=== PATIENT | female | born 1975 | race American Indian/Alaskan Native ===

== ENCOUNTER 2019-11-08 22:23 | Emergency (ER) | payer SELFPAY ==
[2019-11-08 23:05] VITALS: BP 125/83
[2019-11-09 00:06] LABS: Basophils # (Auto) 0.1 K/mm3 (0.0-0.1); Basophils % (Auto) 0.8 % (0.0-1.8); Eosinophils # (Auto) 0.1 K/mm3 (0.0-0.4); Eosinophils % (Auto) 1.3 % (0.0-4.3); Hematocrit 34.1 % (30.3-42.9); Hemoglobin 11.2 gm/dl (10.1-14.3); Lymphocytes # (Auto) 2.7 K/mm3 (1.2-5.4); Lymphocytes % (Auto) 42.3 % (13.4-35.0); Mean Corpuscular HGB Conc 33 % (30-34); Mean Corpuscular Volume 80 fl (79-97); Monocytes # (Auto) 0.7 K/mm3 (0.0-0.8); Monocytes % (Auto) 10.8 % (0.0-7.3); Platelet Count 341 K/mm3 (140-440); Red Blood Count 4.26 M/mm3 (3.65-5.03); Red Cell Distribution Width 15.4 % (13.2-15.2)
[2019-11-09 02:35] LABS: Bilirubin,Urine NEG (Negative); Urobilinogen,Urine < 2.0 mg/dL (<2.0)
[2019-11-09 02:48] LABS: Blood,Urine LG (Negative); Color,Urine Yellow (Yellow)
[2019-11-09 02:52] LABS: Protein,Urine >500 mg/dL (Negative); RBC,Urine > 182.0 /HPF (0.0-6.0); WBC,Urine > 182.0 /HPF (0.0-6.0)
--- NOTE | 2019-11-09 03:44 | Ultrasound Report ---
EXAMINATION: Obstetrical Ultrasound INDICATION: Vaginal bleeding in . COMPARISON: None FINDINGS: The uterus is upper limits of normal in size measuring 10.4 x 6.1 x 7.6 cm. The endometrial complex m easures approximately 2 cm. No intrauterine is visualized. The right adnexal region appears within normal limits. The left adnexal region is not visualized. No free pelvic fluid is seen. IMPRESSION: 1. No sonographic evidence of intrauterine . Diagnostic considerations include failed or fa iling , too early to visualize or less likely ectopic . Please correlate with patient's clinical circumstances. Signer Name: Yany Escalona MD Signed: 11/09/2019 3:40 AM Workstation Name: [email or web address]
--- NOTE | 2019-11-09 05:26 | Emergency Department Report ---
ED Female HPI - General Chief complaint: Vaginal Bleeding Stated complaint: 5 WKS W/BLEEDING Source: patient Mode of arrival: Ambulatory Limitations: No Limitations - History of Present Illness Initial comments: Patient is a A1 44-year-old -[place] female with no past medical history was approximately 4 weeks gestation and presents to the ED with of acute onset persistent pelvic pain and vaginal bleeding for the last 10 hours. Patient states that the bleeding has been heavy on the pain crampy and persistent. Patient denies fever, chills, nausea, vomiting, diarrhea, dizziness, cough, shortness of breath, chest pain, syncope, lightheadedness, dysuria, urinary frequency and urgency or low back pain. MD Complaint: vaginal bleeding, pelvic pain -: Sudden, hour(s) (10) Location: suprapubic, other (vaginal) Radiation: non-radiating Severity: severe Severity scale (0 -10): 7 Quality: cramping, aching Consistency: constant Improves with: none Worsens with: none Are you Now?: Yes (4 weeks gestation) Associated Symptoms: denies other symptoms, vaginal bleeding, abdominal pain (suprapubic), hematuria. denies: vaginal discharge, nausea/vomiting, fever/chills, headaches, loss of appetite, dysuria, rash, seizure, shortness of breath - Related Data Sexually active: Yes : 6 Para: 4 A: 1 Previous Rx's Medication Instructions Recorded Last Taken Type cephALEXin [Keflex] 500 mg PO Q6HR #40 capsule 11/09/19 Unknown Rx Allergies Allergy/AdvReac Type Severity Reaction Status Date / Time No Known Allergies Allergy Unverified 11/08/19 22:59 ED Review of Systems ROS: Stated complaint: 5 WKS W/BLEEDING Other details as noted in HPI Constitutional: denies: chills, fever Eyes: denies: eye pain, eye discharge, vision change ENT: denies: ear pain, throat pain Respiratory: denies: cough, shortness of breath, wheezing Cardiovascular: denies: chest pain, palpitations Endocrine: no symptoms reported Gastrointestinal: abdominal pain (suprapubic). denies: nausea, vomiting, diarrhea, constipation, hematemesis, hematochezia Genitourinary: abnormal menses (vaginal bleeding). denies: urgency, dysuria, discharge Musculoskeletal: denies: back pain, joint swelling, arthralgia Skin: denies: rash, lesions Neurological: denies: headache, weakness, paresthesias Psychiatric: denies: anxiety, depression Hematological/Lymphatic: denies: easy bleeding, easy bruising ED Past Medical Hx - Past Medical History Previous Medical History?: No - Surgical History Past Surgical History?: Yes Additional Surgical History: - Social History Smoking Status: Never Smoker Substance Use Type: None - Medications Home Medications: Home Medications Medication Instructions Recorded Confirmed Last Taken Type cephALEXin [Keflex] 500 mg PO Q6HR #40 capsule 11/09/19 Unknown Rx ED Physical Exam - General Limitations: No Limitations General appearance: alert, in no apparent distress - Head Head exam: Present: atraumatic, normocephalic, normal inspection - Eye Eye exam: Present: normal appearance, PERRL, EOMI Pupils: Present: normal accommodation - ENT ENT exam: Present: normal exam, normal orophraynx, mucous membranes moist, TM's normal bilaterally, normal external ear exam - Neck Neck exam: Present: normal inspection, full ROM. Absent: tenderness - Respiratory Respiratory exam: Present: normal lung sounds bilaterally. Absent: respiratory distress, wheezes, rales, rhonchi, chest wall tenderness - Cardiovascular Cardiovascular Exam: Present: regular rate, normal rhythm, normal heart sounds. Absent: systolic murmur, diastolic murmur, rubs, gallop - GI/Abdominal GI/Abdominal exam: Present: soft, tenderness (mild suprapubic tenderness), normal bowel sounds. Absent: guarding, rebound, rigid, hyperactive bowel sounds, hypoactive bowel sounds, organomegaly - Bi-manual exam: Present: other (pelvic exam declined by patient) - Extremities Exam Extremities exam: Present: normal inspection, full ROM, normal capillary refill - Back Exam Back exam: Present: normal inspection, full ROM. Absent: tenderness, CVA tender ness (L), muscle spasm, paraspinal tenderness - Neurological Exam Neurological exam: Present: alert, oriented X3, CN II-XII intact, normal gait, reflexes normal - Psychiatric Psychiatric exam: Present: normal affect, normal mood - Skin Skin exam: Present: warm, dry, intact, normal color. Absent: rash ED Course Vital Signs 11/08/19 23:04 Temperature 98.5 F Pulse Rate 86 Respiratory 16 Rate Blood Pressure 125/83 [Left] O2 Sat by Pulse 100 Oximetry ED Medical Decision Making - Lab Data Result diagrams: 11/08/19 23:16 - Radiology Data Radiology results: report reviewed, image reviewed Findings [facility] [address] [place] [address] Ultrasound Report Signed Patient: JULIO COOPER MR#: [id number] : 1975 Acct:[id number] Age/Sex: 44 / F ADM Date: 11/08/19 Loc: ED Attending Dr: Ordering Physician: SVEN BORREGO MD Date of Service: 11/09/19 Procedure(s): US OB transvaginal Accession Number(s): [id number] cc: ED MD SALIMA EXAMINATION: Obstetrical Ultrasound INDICATION: Vaginal bleeding in . COMPARISON: None FINDINGS: The uterus is upper limits of normal in size measuring 10.4 x 6.1 x 7.6 cm. The endometrial complex measures approximately 2 cm. No intrauterine is visualized. The right adnexal region appears within normal limits. The left adnexal region is not visualized. No free pelvic fluid is seen. IMPRESSION: 1. No sonographic evidence of intrauterine . Diagnostic considerations include failed or failing , too early to visualize or less likely ectopic . Please correlate with patient's clinical circumstances. Signer Name: Yany Escalona MD Signed: 11/09/2019 3:40 AM Workstation Name: [id number] Transcribed By: Dictated By: Yany Escalona MD Electronically Authenticated By: Yany Escalona MD Signed Date/Time: 11/09/19 0340 DD/ [id number] TD/TT: - Medical Decision Making This is a A1 34-year-old female who is approximately 4 weeks' gestation and who presented to the ED with pelvic pain and vaginal bleeding for 10 hours. In the ED, patient is alert and oriented 3 and is in distress. Lab test results were reviewed and show significant urinary tract infection. HCG Quant is 8670, ABO/RHO is 0 positive, and the rest of the lab test results are nonactionable. Patient was treated for pain in the ED and also given initial oral antibiotics for UTI. Transvaginal ultrasound report by the radiologist shows no sonographic evidence of intrauterine . Diagnostic considerations include failed or failing , too early to visualize or less likely ectopic . Please correlate with patient's clinical circumstances. The patient's last menstrual cycle was 09/14/2019, and the hCG Quant is 8670. Given the fact that there is no visible IUP at this time, the differential diagnoses also be due to either demise or ectopic or the is too early to visualize the implanted fetus. The patient was discharged home on oral antibiotics for UTI and advised to take Tylenol as needed for pain. Patient was also advised to maintain a complete pelvic rest with no heavy lifting or sexual activity and to return to the ED or her [facility] physician within 48 hours for serial hCG tests on from the viability of the . Patient verbalized understanding and promise to either return to the ED or go to [facility] [employer] physician's office to repeat the test. Patient was otherwise advised to return to the ED immediately if symptoms get worse. - Differential Diagnosis Threatened miscarriage; UTI; Subchorionic bleed; Ovarian cyst; demise Critical care attestation.: If time is entered above; I have spent that time in minutes in the direct care of this critically ill patient, excluding procedure time. ED Disposition Clinical Impression: Threatened miscarriage in early , Acute urinary tract infection, Vaginal bleeding in Abdominal pain during Qualifiers: Trimester: first trimester Qualified Code(s): O26.891 - Other specified related conditions, first trimester; R10.9 - Unspecified abdominal pain Disposition: DC-01 TO HOME OR SELFCARE Is pt being admited?: No Does the pt Need Aspirin: No Condition: Stable Instructions: Threatened Miscarriage (ED), Urinary Tract Infection in Women (ED), Abdominal Pain in (ED) Additional Instructions: Maintain a complete pelvic rest with no sexual activity or heavy lifting activities. Return to the ED or to your [facility] [employer] physician office in 48 hours repeat of hCG test. Take medications with food, drink plenty of fluids. Prescriptions: cephALEXin [Keflex] 500 mg PO Q6HR #40 capsule Referrals: JHOANA BRADFORD MD [Staff Physician] - 2-3 Days Time of Disposition: 05:42 Print Language: KENYAN
[2019-11-09] MEDS ORDERED: ACETAMINOPHEN 500 MG TAB PO ONE (05:28)
[2019-11-09] MEDS ORDERED: cephALEXin 500 MG CAP PO ONE (05:28)
== END 2019-11-09 06:05 | disposition home or self-care (01) ==
LOC: EDSEX → ED 22:23
DX: O20.0 Threatened abortion (principal); O23.41 Unspecified infection of urinary tract in pregnancy, first trimester; Z3A.01 Less than 8 weeks gestation of pregnancy
CPT/HCPCS: 36415; 76801; 76817; 81001; 84702; 85025; 86900; 86901; 99284